=== PATIENT | female | born 1980 | race Two or more races ===

== ENCOUNTER 2020-07-20 10:53 | Emergency (ER) | payer OTHER, SELFPAY ==
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
[2020-07-20 11:10] VITALS: BP 122/76; BP 127/81; PULSE 80; PULSE 85; RESP 16; TEMP 36.7; O2SAT 100; BMI 28.1
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
[2020-07-20] MEDS: Acetaminophen 325 MG TABLET 650 MG PO (12:55)
--- NOTE | 2020-07-20 13:00 | PC.NURSE ---
Pt medicated for pain. Awaiting screening prior to CT scan.
--- NOTE | 2020-07-20 15:26 | PC.NURSE ---
This inspector automatic typewriter attempted to introduce myself to the patient and obtained vs. belongings were gone from the bed and it appears that the patient has left the er. Bathrooms cleared of individuals
== END 2020-07-20 15:28 | disposition left against medical advice (07) ==
PROVIDERS: Emergency Provider Emergency Medicine; PCP Internal Medicine
DX: Z04.1 Encounter for examination and observation following transport accident (principal); M25.511 Pain in right shoulder; M54.2 Cervicalgia
CPT/HCPCS: 70450; 72125; 73030; 99283; 99284

== ENCOUNTER 2021-09-02 06:41 | Emergency (ER) | payer OTHER, SELFPAY ==
[2021-09-02 07:17] VITALS: BP 114/59; PULSE 84; RESP 16; TEMP 36.7; O2SAT 97; BMI 27.6
--- NOTE | 2021-09-02 09:42 | ED.GENADULT ---
HPI - General Adult General Chief complaint: Back Pain/Injury Stated complaint: reoccurring chest pain, back pain Time Seen by Provider: 09/02/21 09:08 Source: patient Mode of arrival: ambulatory Limitations: no limitations History of Present Illness HPI narrative: Patient is a 40 year old female presenting to the emergency department today with new right sided back pain that radiates down her leg and chronic chest pain. Patient states that she has been evaluated for this central chest pain dozens of times over the last few months and that is chronic for her. However, she states that her right low back is having some mild pain that radiates down her right leg. Patient states that she has a history of sciatica and DDD. Patient denies any dizziness, lightheadedness, abdominal pain, nausea, vomiting, fever, chills, blurry vision, double vision, loss of vision, difficulty breathing, shortness of breath, night sweats, pain with urination, increased urinary frequency, increased urinary urgency, blood in her urine or stool, syncope or a near syncopal episode, recent trauma or falls, bowel incontinence, bladder incontinence, bowel retention, bladder retention, or any other complaints at this time. Onset (ago): day(s) Location: chest and back Radiation: non-radiation Severity: mild Severity scale (1-10): 2 Quality: dull Pain Consistency: intermittent Relieving factors: none Exacerbating factors: none Associated symptoms: denies other symptoms Treatments prior to arrival: none Related Data Previous Rx's Medication Instructions Recorded cyclobenzaprine 5 mg tablet 5 mg PO TID PRN low back pain 7 09/02/21 days #21 tabs Allergies Allergy/AdvReac Type Severity Reaction Status Date / Time No Known Allergies Allergy Unverified 11/20/19 15:37 [No Known Allergies*] Review of Systems Constitutional: Constitutional: Reports no additional constitutional complaints, Denies chills, Denies fever(s) and Denies night sweats Eyes: Eyes: Reports no additional eye complaints, Denies blurry vision, Denies change in vision, Denies diplopia, Denies eye discharge, Denies loss of vision and Denies eye pain ENT: Denies dizziness Cardiovascular: Cardiovascular: Reports no additional cardiovascular complaints, Reports chest pain (chronic), Denies lightheadedness, Denies Loss of Consciousness and Denies dyspnea Respiratory: Respiratory: Reports no additional respiratory complaints and Denies dyspnea Gastrointestinal: Gastrointestinal: Reports no additional gastrointestinal complaints, Denies abdominal pain, Denies melena, Denies hematochezia, Denies change in bowel habits and Denies change in stool character Genitourinary: Genitourinary: Denies hematuria, Denies urinary frequency, Denies dysuria, Denies urinary incontinence, Denies urinary hesitancy and Denies urinary urgency Musculoskeletal: Musculoskeletal: Reports no additional musculoskeletal complaints, Reports back pain, Denies numbness and Denies tingling Neurologic: Denies dizziness, Denies loss of vision, Denies numbness and Denies tingling Psychiatric: Psychiatric: Reports no additional psychiatric complaints Endocrine: Endocrine: Reports no additional endocrine complaints Hematologic/Lymphatic: Hematologic/Lymphatic: Reports no additional hematologic/lymphatic complaints Allergic/Immunologic: Allergic/Immunologic: Reports no additional allergic/immunologic complaints PMFSH Past Medical History Attestation statement: The following information was validated with the patient. Source: old records reviewed Medical History Anxiety Depression PTSD (post-traumatic stress disorder) Social History Social History Advance Directives: No Advance Directives Information Provided: No Physical Exam ED Vital Signs: Vital Signs - 24 hr 09/02/21 07:17 Temperature 98.1 F Pulse Rate 84 Respiratory Rate 16 Blood Pressure 114/59 L Pulse Oximetry 97 Oxygen Delivery Method Room Air BMI result Body Mass Index 27.6 Const General: cooperative, no acute distress, alert and awake Nutritional Appearance: well nourished Orientation/consciousness: patient oriented x3 Limitations: no limitations [facility] Head: Yes normal to inspection and Yes atraumatic Ears: hearing grossly normal bilaterally and external ears normal General nose exam: Normal external nose present, no nasal discharge noted and no epistaxis Face and sinus: Yes normal facial exam, No abrasion and No laceration Mouth: Normal oral and palatal mucosa present, no drooling and no muffled voice Eyes General: appearance normal, both eyes and all related structures Periorbital: periorbital findings normal Eyelids: Yes eyelids normal Conjunctivae: conjunctivae normal Pupils: Equal, round and reactive pupils present EOM: EOMs intact bilaterally Neck Neck: Yes normal visual inspection, Yes full ROM and Yes no lymphadenopathy Chest Chest palpation & inspection: normal inspection of the chest Resp Effort & Inspection: normal respiratory effort and able to speak in complete sentences Auscultation: clear to auscultation bilaterally Cardio Rate: regular rate Rhythm: regular rhythm GI Inspection: Yes normal to inspection Palpation (GI): Soft to palpation, not firm, nontender, no guarding and not rigid General: Yes no CVA tenderness Back/Spine/Pelvis Back: no CVA tenderness Cervical Spine: normal cervical lordosis and cervical ROM normal Thoracic/Lumbar Spine: thoracic and lumbar spine normal to inspection and thoraco-lumbar ROM normal Pelvis: no pain with anterior-posterior compression Neuro General: patient oriented x3 and moves all extremities Cranial nerves: Yes Equal, round and reactive pupils present Cognition (Neuro): normal cognition Motor exam (neuro): 5/5 motor strength present throughout Sensory Exam: Normal double simultaneous stimulation for sensation Coordination: [id number] test normal Extrem General: Yes normal to inspection, Yes full ROM and Yes capillary refill normal Psych Appearance: grossly normal Mental Status: mental status grossly normal Affect: normal affect Attitude: cooperative Thought process: Normal thought process present Thought content: Normal thought content present Insight: Good insight present (Psych) Medical Decision Making MDM Narrative Medical decision making narrative: Patient is a 40 year old female presenting to the emergency department today with chronic chest and back pain. Patient's physical exam was unremarkable. Patient was non-toxic appearing resting very comfortably in bed. I explained my physical exam findings to the patient. I answered all questions asked by the patient. Patient received IM Toradol and PO Flexeril which she stated helped her pain significantly. I stressed the importance of the patient taking her medication as prescribed. I stressed the importance of the patient following up with her primary care provider. I stressed the importance of the patient returning to the emergency department immediately if her symptoms were to worsen or if she were to develop any dizziness, shortness of breath, difficulty breathing, chest pain, blurry vision, loss of vision, nausea, vomiting, abdominal pain, fever, chills, back pain, or any other complaints. Patient verbalized agreement and understanding with this treatment plan and discharge. Differential Diagnosis Differential Diagnosis: chronic chest pain, sciatica Medical Records Medical records reviewed: Yes I reviewed the patient's medical records. Discharge Plan Discharge Clinical Impression: Sciatica Patient Disposition: Home, Self-Care Instructions: Sciatica (ED) Additional Instructions: Follow up with your primary care provider. Return to the emergency department immediately if your symptoms worsen or if you develop any dizziness, shortness of breath, difficulty breathing, chest pain, blurry vision, loss of vision, nausea, vomiting, abdominal pain, fever, chills, back pain, or any other complaints. Prescriptions: New cyclobenzaprine 5 mg tablet 5 mg PO TID PRN (Reason: low back pain) 7 Days Qty: 21 0RF Referrals: Mario Castellon III, MD [Primary Care Provider] - (Follow up with your primary care provider.) Stand Alone Forms: Work/School Release Print Language: Peruvian
[2021-09-02] MEDS: Ketorolac Tromethamine 15 MG/ML VIAL IM (10:18)
[2021-09-02] MEDS: Cyclobenzaprine HCl 5 MG TABLET PO (10:19)
== END 2021-09-02 10:25 | disposition home or self-care (01) ==
PROVIDERS: Emergency Provider Emergency Medicine Emergency Medical Services; PCP Internal Medicine
DX: M54.42 Lumbago with sciatica, left side (principal); M54.41 Lumbago with sciatica, right side; R07.89 Other chest pain; Z79.899 Other long term (current) drug therapy
CPT/HCPCS: 96372; 99284; J1885

== ENCOUNTER → 2021-11-28 12:54 | Outpatient (BNVA) | payer OTHER, SELFPAY | PROVIDERS: PCP Internal Medicine; Visit Provider Internal Medicine | DX: M47.812 Spondylosis without myelopathy or radiculopathy, cervical region (principal); M48.062 Spinal stenosis, lumbar region with neurogenic claudication | CPT/HCPCS: 99202 ==

== ENCOUNTER 2025-01-05 11:19 | Emergency (ER) | payer OTHER, SELFPAY ==
[2025-01-05 11:36] VITALS: BP 137/79; PULSE 77; RESP 16; TEMP 36.2; O2SAT 98; BMI 30.8
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
[2025-01-05 12:34] VITALS: BP 137/79; PULSE 77; RESP 16; TEMP 36.2; O2SAT 98
--- OUTSIDE RECORDS SUMMARY | 2025-01-05 14:58 | XMS_ITS | Clinical Summary ---
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 3 Active omeprazole (PRILOSEC) 20 MG tablet Take 40 mg by mouth daily. Active tiZANidine (ZANAFLEX) 4 MG tablet Take 4 mg by mouth. 4 Active ergocalciferol (DRISDOL) 50,000 unit capsule Take 1 capsule by mouth once a week. 3 Active therapeutic multivitamin tablet Take 1 tablet by mouth daily. Active meloxicam (MOBIC) 15 MG tabletIndications :Chronic bilateral low back pain without sciatica Take 1 tablet (15 mg total) by mouth daily. Take with food as needed for back pain 30 tablet 4 Active Active Problems Problem Noted Date Diagnosed Date Chronic bilateral low back pain without sciatica 04/23/2023 Overview (04/23/2023): Plain film l-spine 12/2022 ([facility]) compared to 2016 exam, stable minimal disc space narrowing L5/S1; progressive facet arthropathy at L4/5 > L5/S1 Assessment & Plan (04/23/2023 1:40 PM EST): No historical or physical evidence s/o underlying inflammatory arthritis; no clear current indication for ongoing rheumatology-specific mgmt. Trial meloxicam as needed; further mgmt deferred to PCP. Fibromyalgia 04/23/2023 Overview (04/23/2023): Dx'd by PCP prior to 2013 Pregabalin ? 12/2022 to current Co-morbid BPAD Assessment & Plan (04/23/2023 1:45 PM EST): No subjective or objective evidence s/o underlying inflammatory arthritis or connective tissue disease and thus no clear indication for ongoing rheumatology-specific mgmt. D/w patient potential benefit of non-pharmacologic mgmt, including low impact aerobic exercise routine (water-based if possible) and attention to restorative sleep, in addition to current pregabalin. She may benefit from dedicated counseling to help cope with chronic pain. True Sjogren's unlikely and dx unlikely to change mgmt but could obtain SSA/SSB with next routine lab draw for completeness; happy to re-evaluate if either of these returns strongly positive and/or if there is clinical concern for evolving inflammatory arthritis or connective tissue disease. Family History Medical History Relation Comments Scoliosis Brother Diabetes Father Hypertension Father Arthritis Mother Hypertension Mother Prediabetes Mother Anxiety disorder Sister 1 Depression Sister 1 Endometriosis Sister 1 Post-traumatic stress disorder Sister 1 Vertigo Sister 2 Relation Status Comments Brother Alive Father Alive Mother Alive Sister 1 Alive Sister 2 Alive Social History Tobacco Use Types Packs/Day Years Used Date Smoking Tobacco: Never Smokeless Tobacco: Never Alcohol Use Standard Drinks/Week Comments Never 0 (1 standard drink = 0.6 oz pur e alcohol) Education Answer Date Recorded Are you interested in more education? Not on harmony e 12/20/2022 Are you concerned about learning? Not on file 12/20/2022 No 12/20/2022 No 12/20/2022 Digital Access Answer Date Recorded No 12/20/2022 No 12/20/2022 Reliable internet access at home? Not on file 12/20/2022 Device with a working camera? Not on file Comments Unknown Sex and Gender Information Value Date Recorded Sex Assigned at Not on file Legal Sex Female 10:40 AM EDT Gender Identity Not on file Sexual Orientation Not on file Last Filed Vital Signs Vital Sign Reading Time Taken Comments Blood Pressure 120/72 04/12/2023 10:32 AM EST Pulse 84 04/12/2023 10:32 AM EST Temperature - - Respiratory Rate - - Oxygen Saturation 97% 04/12/2023 10:32 AM EST Inhaled Oxygen Concentration - - Weight 76.4 kg (168 lb 6.4 oz) 04/12/2023 10:32 AM EST Height 152.4 cm (5') 04/12/2023 10:32 AM EST Body Mass Index 32.89 04/12/2023 10:32 AM EST Plan of Treatment Health Maintenance Due Date Last Done Comments DEPRESSION SCREENING 1994 HEPATITIS C SCREENING 2000 HIV ONE-TIME SCREENING (18-6 5 YEARS) 2000 PAP SMEAR 09/13/2003 SCREENING FOR DIABETES 2017 MAMMOGRAM 2022 INFLUENZA VACCINE (#1) 2024 COVID-19 VACCINE ( - 2024-2 6 season) 2024 Adult Td,Tdap Booster 12/13/2025 12/14/2015 SMOKING STATUS SCREENING (On ce After 26 Yrs) Completed 04/12/2023 HEPATITIS A VACCINES Aged Out No long er eligible based on patient's age to complete this topic HIB VACCINES Aged Out No longer eligi ble based on patient's age to complete this topic MENINGOCOCCAL VACCINES (ACWY) Aged Out No longer eligible based on patient's age to complete this topic MENINGOCOCCAL VACCINES (B) Aged Out N o longer eligible based on patient's age to complete this topic PNEUMOCOCCAL VACCINES (0-49 years) Aged Out No longer eligible based on patient's age to complete this topic Medical Devices Not on file Insurance [address] [place] [id number] [place] [address] [place] [address] [place] [address] [facility] [place] [address] [place] [address] [facility] [address] [place] [address] [facility] [address] [place] [id number] [place] [address] [employer] [address] [place] [id number] [place] [address] [employer] Care Teams Vacuum Metalizing Supervisor Relationship Specialty Start Date End Date Zara Medrano MD PCP - General Family Medicine 12/08/22 Additional Source Comments The information contained in this document represents components of the legal health record. It is not the complete legal health record.[facility]
== END 2025-01-05 12:34 | disposition home or self-care (01) ==
PROVIDERS: Emergency Provider Emergency Medicine; PCP Family Medicine
DX: S16.1XXA Strain of muscle, fascia and tendon at neck level, initial encounter (principal); V49.49XA Driver injured in collision with other motor vehicles in traffic accident, initial encounter; Y93.9 Activity, unspecified; Y92.481 Parking lot as the place of occurrence of the external cause; M25.512 Pain in left shoulder; R51.9 Headache, unspecified; M54.9 Dorsalgia, unspecified
CPT/HCPCS: 99282; 99283